=== PATIENT | female | born 1950 | race Caucasian/White ===

== ENCOUNTER 2017-09-06 13:17 | Outpatient (CLI) | payer MEDICARE | END 2017-09-06 14:05 | disposition home or self-care (01) | LOC: D.OPS 13:17 | DX: M81.0 Age-related osteoporosis without current pathological fracture (principal) ==

== ENCOUNTER 2018-11-29 07:45 | Day surgery (SDC) | payer MEDICARE ==
[~2018-11-29] VITALS: Ht 170.2 cm; Wt 56.7 kg
[~2018-11-29 07:45] MED LIST: ADDERALL 30 MG30 MG PO; CALCIUM; CELEXA20 MG PO; NEURONTIN800 MG
[2018-11-29 08:01] LABS: HEMATOCRIT 44.3 % (36.0-48.0); HEMOGLOBIN 14.7 g/dL (12-16); MCH 29.9 pg (26.0-34.0); MCHC 33.2 g/dL (31.0-37.0); MEAN PLATELET VOLUME 9.7 fL (7.4-10.4); RBC 4.92 10x6/uL (4.00-5.40); WBC 6.1 10x3/uL (4.8-10.8)
[2018-11-29 09:14] VITALS: BP 167/62; Ht 170.2 cm; Wt 56.7 kg
[2018-11-29] MEDS ORDERED: HYDROCODON-ACE1 EAC7 PO (11:12)
[2018-11-29] MEDS ORDERED: KEFLEX500 MG PO (11:12)
--- NOTE | 2018-12-02 12:05 | OP ---
PATIENT NAME: MYRIAM DE JESUS MEDICAL RECORD: [id number] :54 LOCATION:[facility] ADMISSION DATE: SURGEON: AIME LARIOS DO DATE OF OPERATION: 11/29/2018 PROCEDURE PERFORMED: Right fourth toe middle phalanx open reduction and pinning. PREOPERATIVE DIAGNOSIS: Right fourth toe middle phalanx fracture dislocation at the PIP joint of the fourth toe. POSTOPERATIVE DIAGNOSIS: Right fourth toe middle phalanx fracture dislocation at the PIP joint of the fourth toe. INDICATIONS: Ms. De Jesus is a 68-year-old female who kicked a baby walker on accident about 3 weeks ago. She had deformity in her toe and swelling. She went to the walk-in clinic, had an x-ray and saw a fracture dislocation. The dislocation was plantar. The middle phalanx was fractured on the dorsal surface and then had subluxed plantarly and dislocated. This was tried to be attempted to closed reduction at the walk-in clinic without success. She was referred to my clinic and spoke with my nurse practitioner. I informed of the risks and benefits of getting the reduction, possible no motion at the PIP joint and need for further surgery, pain and infection. She signed the consent being aware of those risks. SURGEON: Aime Larios DO DESCRIPTION OF PROCEDURE: The patient was taken to the operative suite, laid in supine position, given general anesthetic, and a gram of Ancef. The right lower extremity was prepped and draped in sterile fashion. Timeout was performed, everyone was in agreement of the correct side, site, patient and procedure. Esmarch was then used to exsanguinate the right lower extremity, tourniquet was inflated to 350 mmHg and was up for 23 minutes. Incision then began over the PIP joint. Careful dissection was made down to the joint itself. The fracture was cleaned out and the pieces were too small to put back. The fracture, which fractured completely stripped off the cartilage of the middle phalanx at the PIP joint and this was dug out and finally it was able to be reduced. Once it was reduced and noted that the cartilage was completely gone, the cartilage was then denuded on the proximal phalanx at the PIP joint and then a 4.5 pin was placed from distal to proximal through the PIP joint and the distal phalanx, middle phalanx, and proximal phalanx lining up the toe nicely and gave a good reduction of the fracture on AP and lateral with hopes that this will fuse. The tourniquet was then let down at 23 minutes and the incision over the PIP was closed with a 4-0 nylon in a horizontal mattress fashion. The pin was then bent and cut and the site was dressed with Xeroform and 4 x 4s and Kerlix and wrapped with an Marcelino wrap. She had a postop shoe, which is in her room which is going to put on. She is to weightbear as tolerated. BLOOD LOSS: Minimal. COMPLICATIONS: None. TRANSINT:[id number] Voice Confirmation ID: [id number] DOCUMENT ID: [id number] OPERATIVE REPORT [id number] MYRIAM DE JESUS MICHAEL D, DO at 1205 CC: [id number] DICTATION DATE: 11/29/18 1117 [employer]IN [employer] INSTRUCTOR: 11/29/18 1154 [facility] 11/29/18 [id number] [place] [address]
== END 2018-11-29 13:15 | disposition home or self-care (01) ==
LOC: D.OPS 07:45 → D.PAN 09:45 → D.OPS 09:45
PROVIDERS: Anesthesiology; ATTEND Orthopaedic Surgery
DX: S92.911A Unspecified fracture of right toe(s), initial encounter for closed fracture (principal)